=== PATIENT | male | born 1975 | race Caucasian/White ===

== ENCOUNTER 2023-08-29 08:22 | Day surgery (SDC) | payer BC ==
[2023-08-27 13:57] VITALS: BMI 29.2
[2023-08-29 10:17] VITALS: RESP 18; TEMP 97
[2023-08-29 10:18] VITALS: BP 121/76; PULSE 65
== END 2023-08-29 10:15 | disposition home or self-care (01) ==
LOC: FASU-ENDO 08:22
PROVIDERS: ATTEND Internal Medicine Gastroenterology
PROC: 0DJD8ZZ Inspection of Lower Intestinal Tract, Via Natural or Artificial Opening Endoscopic (ICD-10-PCS; principal; 2023-08-29 09:21)
DX: Z12.11 Encounter for screening for malignant neoplasm of colon (principal)